=== PATIENT | female | born 1990 | race Two or more races ===

== ENCOUNTER 2021-03-29 18:30 | Emergency (ER) | payer SELFPAY ==
[~2021-03-29] VITALS: Ht 160 cm; Wt 59.1 kg
[~2021-03-29 18:30] MED LIST: PREN1TAB80 PO
[2021-03-29] MEDS ORDERED: KETOROLAC TROMETHAMINE 30 MG/ML VIAL IVP ONE (20:00)
[2021-03-29] MEDS ORDERED: SODIUM CHLORIDE 0.9% 1,000 ML IV ONE (20:00)
[2021-03-29 20:13] LABS: BASOPHILS % (AUTO) 0.4 % (0.0-2.0); EOSINOPHILS % (AUTO) 0.3 % (1.0-6.0); HEMATOCRIT 42.5 % (36-46); HEMOGLOBIN 15.3 g/dL (12.0-16.0); LYMPHOCYTES # (AUTO) 1.7 K/uL (1.0-4.8); LYMPHOCYTES % (AUTO) 12.8 % (22.0-44.0); MEAN CORPUSCULAR HEMOGLOBIN 30.7 pg (26.0-34.0); MEAN CORPUSCULAR VOLUME 85 fL (80-100); MONOCYTES # (AUTO) 0.7 K/uL (0.1-1.0); MONOCYTES % (AUTO) 5.4 % (2.0-9.0); NEUTROPHILS # (AUTO) 10.9 K/uL (1.8-7.7); NEUTROPHILS % (AUTO) 81.1 % (40.0-70.0); PLATELET COUNT (AUTO) 317 K/uL (150-450); RED BLOOD CELL COUNT(AUTO) 4.98 MIL/uL (4.00-5.20); RED CELL DISTRIBUTION WIDTH 13.2 % (11.5-14.5)
[2021-03-29 20:29] LABS: ANION GAP 6 mmol/L (8-16); CALCIUM, TOTAL 9.2 mg/dL (8.8-10.5); CARBON DIOXIDE 28 mmol/L (22-29); CHLORIDE 103 mmol/L (98-107); GLOMERULAR FILTR. RATE CALC > 60 mL/min (>60); GLUCOSE,RANDOM 100 mg/dL (70-110); POTASSIUM 3.4 mmol/L (3.5-5.1); SODIUM SERUM 137 mmol/L (136-145); UREA NITROGEN, BLOOD 11 mg/dL (7-18)
[2021-03-29 20:40] LABS: HCG,QUANTITATIVE < 1 mIU/mL (0-6)
[2021-03-29] MEDS ORDERED: SODIUM CHLORIDE 0.9% 100 ML ONE (21:11)
[2021-03-29] MEDS ORDERED: IOHEXOL 350 MG/ML 75 ML VIAL ONE (21:11)
[2021-03-29] MEDS ORDERED: AMOX-426 PO (22:59)
[2021-03-30 00:30] VITALS: BP 121/77
== END 2021-03-30 00:54 | disposition home or self-care (01) ==
LOC: EMS 18:32
DX: L03.211 Cellulitis of face (principal); K11.20 Sialoadenitis, unspecified; K02.9 Dental caries, unspecified; Z79.899 Other long term (current) drug therapy
CPT/HCPCS: 36415; 70491; 80048; 84702; 85025; 96361; 96374; 99285; J1885; J7030; J7050; Q9967

== ENCOUNTER 2023-11-01 21:11 | Emergency (ER) | payer SELFPAY ==
[~2023-11-01] VITALS: Ht 157.5 cm; Wt 56.8 kg
[~2023-11-01 21:11] MED LIST changes: +AMOX-426 PO
[2023-11-01 21:33] VITALS: TEMP 97.9
[2023-11-01] MEDS ORDERED: LIDOCAINE 1% 10 ML VIAL ID ONE (23:00)
[2023-11-01] MEDS: LIDOCAINE/PF 1% 5 ML VIAL ID ONE (23:04)
[2023-11-02] MEDS ORDERED: SULF-261 PO (00:10)
[2023-11-02 00:30] VITALS: BP 135/79; PULSE 87; RESP 18; O2SAT 99
== END 2023-11-02 00:49 | disposition home or self-care (01) ==
LOC: EMS 21:15
DX: L60.0 Ingrowing nail (principal)
CPT/HCPCS: 99284; 11730; J2001; 11732